=== PATIENT | male | born 1985 | race Caucasian/White ===

== ENCOUNTER 2024-10-15 07:19 | Observation (INO) | payer BC ==
[2024-10-15] MEDS ORDERED: Sodium Chloride 0.9% 10 ML Syringe FLUSH PRN (07:29)
[2024-10-15] MEDS ORDERED: Sodium Chloride 0.9% 2.5 ML Syringe FLUSH PRN (07:29)
[2024-10-15] MEDS: Ondansetron 4 MG/2 ML SDV IVPUSH ONE (07:37)
[2024-10-15] MEDS: Sodium Chloride 0.9% 1,000 ML IV STA (07:37)
[2024-10-15 07:51] LABS: HEMATOCRIT 45.4 % (42.0-52.0); MEAN CORPUSCULAR VOLUME 80.2 fL (83.0-99.0); MEAN PLATELET VOLUME 11.6 fL (9.4-12.4); PLATELET COUNT,PLT 409 K/uL (150-400); RED BLOOD CELL COUNT 5.66 M/uL (4.52-5.90); WHITE BLOOD CELL COUNT,WBC 18.94 K/uL (3.9-11.3)
[2024-10-15 08:18] LABS: A/G RATIO 1.2 (0.9-1.6); ALBUMIN 4.6 g/dL (3.4-5.0); CALCIUM 9.6 mg/dL (8.5-10.1); CARBON DIOXIDE,CO2 26.9 mmol/L (21.0-32.0); CREATININE 2.1 mg/dL (0.8-1.3); EST CRCL DRUG DOSING (CG) 46.6 mL/min; MAGNESIUM 2.4 mg/dL (1.8-2.4); PROTEIN TOTAL,TP 8.3 g/dL (6.4-8.2)
[2024-10-15 08:19] LABS: POTASSIUM,K 2.2 mmol/L (3.5-5.1)
[2024-10-15 09:05] LABS: LYMPHOCYTES ABSOLUTE MAN 2.84 K/uL (1.00-4.80); LYMPHOCYTES PERCENT MAN 15 % (24-44); MONOCYTES ABSOLUTE MAN 2.08 K/uL (0.00-0.80); MONOCYTES PERCENT MAN 11 % (0-8); SEG NEUTROPHILS ABSOLUTE MAN 14.02 K/uL (1.80-7.70); SEG NEUTROPHILS PERCENT MAN 74 % (41-71)
[2024-10-15] MEDS: Potassium Chloride 10% 20 MEQ/15 ML Soln 15 ML UD Cup PO ONE (09:06)
[2024-10-15] MEDS: Sodium Chloride 0.9% 250 ML IV ONE (09:07)
[2024-10-15] MEDS: Potassium Chloride 10 MEQ in Premix Bag 1 BAG IV SCH (09:07)
[2024-10-15] MEDS: Iopamidol 755 MG/ML 500 ML Multipack Bottle IVPUSH STA (13:46)
[2024-10-15 14:17] LABS: CARBON DIOXIDE,CO2 30.6 mmol/L (21.0-32.0); CREATININE 1.7 mg/dL (0.8-1.3); EST CRCL DRUG DOSING (CG) 57.56 mL/min; POTASSIUM,K 2.6 mmol/L (3.5-5.1)
[2024-10-15] MEDS ORDERED: Metoclopramide 10 MG/2 ML SDV IV PRN (14:47)
[2024-10-15] MEDS: NS with KCl 40mEq 1,000 ML IV SCH (15:40)
[2024-10-15] MEDS: Calcium Carbonate 500 MG Tab.Chew PO PRN (18:48)
[2024-10-15] MEDS: Pantoprazole 40 MG Tab.CR PO SCH (20:38)
[2024-10-15] MEDS: OLANZapine 5 MG Tab.DIS PO SCH (20:38)
[2024-10-15] MEDS ORDERED: Non-Formulary Medication 1 Each (Omeprazole Magnesium [Prilosec Otc] 20 MG Tablet.Dr) PO SCH (21:00)
[2024-10-15 22:27] LABS: CALCIUM 8.2 mg/dL (8.5-10.1); CARBON DIOXIDE,CO2 27.8 mmol/L (21.0-32.0); CREATININE 1.4 mg/dL (0.8-1.3); EST CRCL DRUG DOSING (CG) 69.89 mL/min; POTASSIUM,K 2.5 mmol/L (3.5-5.1)
[2024-10-15] MEDS: NS with KCl 40mEq 1,000 ML IV ONE (23:25)
[2024-10-16 05:39] LABS: BASOPHILS ABSOLUTE AUTO 0.04 K/uL (0.00-0.20); BASOPHILS PERCENT AUTO 0.4 % (0.0-1.0); EOSINOPHILS ABSOLUTE AUTO 0.18 K/uL (0.00-0.45); EOSINOPHILS PERCENT AUTO 1.9 % (0.0-6.0); HEMATOCRIT 38.6 % (42.0-52.0); HEMOGLOBIN 13.8 g/dL (14.0-18.0); IMMATURE GRAN ABSOLUTE AUTO 0.08 K/uL (0.00-0.05); IMMATURE GRAN PERCENT AUTO 0.8 % (0.0-0.4); LYMPHOCYTES ABSOLUTE AUTO 1.86 K/uL (1.00-4.80); LYMPHOCYTES PERCENT AUTO 19.3 % (24.0-44.0); MEAN CORPUSCULAR HEMOGLOBIN 30.9 pg (28.0-32.0); MEAN CORPUSCULAR HGB CONC 35.8 g/dL (32.0-36.0); MEAN CORPUSCULAR VOLUME 86.4 fL (83.0-99.0); MEAN PLATELET VOLUME 11.7 fL (9.4-12.4); MONOCYTES ABSOLUTE AUTO 0.97 K/uL (0.00-0.80); MONOCYTES PERCENT AUTO 10.1 % (0.0-8.0); NEUTROPHILS ABSOLUTE AUTO 6.49 K/uL (1.80-7.70); NEUTROPHILS PERCENT AUTO 67.5 % (41.0-71.0); PLATELET COUNT,PLT 257 K/uL (150-400); RED BLOOD CELL COUNT 4.47 M/uL (4.52-5.90); WHITE BLOOD CELL COUNT,WBC 9.62 K/uL (3.9-11.3)
[2024-10-16 06:06] LABS: A/G RATIO 1.1 (0.9-1.6); ALBUMIN 3.2 g/dL (3.4-5.0); BILIRUBIN TOTAL 1.7 mg/dL (0.2-1.0); CALCIUM 8.4 mg/dL (8.5-10.1); CARBON DIOXIDE,CO2 30.3 mmol/L (21.0-32.0); CREATININE 1.3 mg/dL (0.8-1.3); EST CRCL DRUG DOSING (CG) 75.27 mL/min; PROTEIN TOTAL,TP 6.1 g/dL (6.4-8.2)
[2024-10-16] MEDS: Potassium Chloride 20 MEQ Tab.ER PO ONE ×2 (08:36→14:13)
[2024-10-16 12:52] LABS: CALCIUM 8.9 mg/dL (8.5-10.1); CARBON DIOXIDE,CO2 26.8 mmol/L (21.0-32.0); CREATININE 1.2 mg/dL (0.8-1.3); EST CRCL DRUG DOSING (CG) 81.54 mL/min; POTASSIUM,K 3.1 mmol/L (3.5-5.1)
[2024-10-16] MEDS: FLU (Flulaval Triv) 24-25(6MOS UP)/PF 45 MCG/0.5 ML Syringe IM ONE (15:05)
[2024-10-18 10:20] LABS: MEAN CORPUSCULAR HEMOGLOBIN 26.9 pg (28.0-32.0); MEAN CORPUSCULAR HGB CONC 33.6 g/dL (32.0-36.0)
[2024-10-18 10:21] LABS: HEMOGLOBIN 15.2 g/dL (14.0-18.0)
== END 2024-10-16 15:19 | disposition home or self-care (01) ==
LOC: MW.ED 07:19 → MW.MS 14:45
PROVIDERS: ADMIT Internal Medicine; ATTEND Internal Medicine
DX: N17.9 Acute kidney failure, unspecified (principal); E87.6 Hypokalemia; K52.9 Noninfective gastroenteritis and colitis, unspecified
CPT/HCPCS: 36415; 70450; 71045; 74177; 76705; 80048; 80053; 83690; 83735; 85025; 87428; 90471; 90656; 93005; A9270; J2405; J3480; J7030; J7050; Q9967; 96361; 96365; 96366; 96375; 99285-25; G0008